=== PATIENT | male | born 1995 ===

== ENCOUNTER 2020-02-11 20:28 | Emergency (ER) | payer OTHER ==
--- NOTE | 2020-02-11 20:57 | NUR ---
REPORTED TO THIS RN BY SILVINA WHITEGAS MAIN FITTER HELPER THIS PATIENT LWBS. WITH ANOTHER PATIENT WHO LWBS.
== END 2020-02-11 20:59 | disposition left against medical advice (07) ==
LOC: ER 20:33
DX: R10.9 Unspecified abdominal pain (principal); R51.9 Headache, unspecified